=== PATIENT | female | born 1975 | race Hispanic/Latino ===

== ENCOUNTER 2017-03-03 20:51 | Emergency (ER) | payer OTHER ==
--- NOTE | 2017-03-03 21:25 | ED PDOC ---
Arrival/HPI - General Chief Complaint: High Blood Pressure Time Seen by Provider: 03/03/17 21:11 - History of Present Illness Narrative History of Present Illness (Text): 03/03/17 21:23 Patient is a 41 y/o F presenting with hypertension. She reports that she is leaving for a cruise tomorrow and her BP is elevated so she is presenting for " a pill" to take care of her blood pressure. She reports intermittent dizziness and fatigue over the last 4 weeks. 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 She reports chronic cough that has been treated with zpack x 2. Denies chest pain, shortness of breath, weakness, numbness. Reports hx of "prediabetes." 03/03/17 22:16 Past Medical History - Cardiac Hx Cardiac Disorders: No - Pulmonary Hx Asthma: Yes - Neurological Hx Neurological Disorder: No - HEENT Hx HEENT Disorder: No - Renal Hx Renal Disorder: No - Endocrine/Metabolic Hx Endocrine Disorders: No - Hematological/Oncological Hx Blood Disorders: No - Integumentary Hx Dermatological Disorder: No - Musculoskeletal/Rheumatological Hx Musculoskeletal Disorders: No - Gastrointestinal Hx Gastrointestinal Disorders: No - Genitourinary/Gynecological Hx Genitourinary Disorders: No - Psychiatric Hx Psychophysiologic Disorder: No Hx Substance Use: No - Anesthesia Hx Anesthesia: No Family/Social History Smoking Status: Never Smoked Hx Alcohol Use: No Hx Substance Use: No Allergies/Home Meds Allergies/Adverse Reactions: Allergies No Known Allergies Allergy (Verified 03/03/17 20:56) Home Medications: Home Meds Medication Instructions Recorded Confirmed Cholecalciferol [Vitamin D] 2,000 iu PO DAILY 03/03/17 03/03/17 Cyanocobalamin (Vitamin B-12) 5,000 mcg SL DAILY 03/03/17 03/03/17 [Vitamin B-12] Review of Systems - Review of Systems Constitutional: Fatigue. absent: Weight Change, Fevers Respiratory: absent: SOB, Cough, Sputum, Wheezing Cardiovascular: absent: Chest Pain, Palpitations Gastrointestinal: absent: Abdominal Pain, Constipation, Diarrhea, Nausea, Vomiting Genitourinary Female: absent: Dysuria Neurological: Dizziness. absent: Headache, Focal Weakness, Gait Changes, Speech Changes, Facial Droop, Disequilibrium Physical Exam Vital Signs Temp Pulse Resp BP Pulse Ox 03/03/17 22:30 89 18 117/72 99 01/18/18 20:59 98.6 F 90 18 155/99 H 97 03/03/17 20:58 98.6 F 87 19 155/99 H 99 Temperature: Afebrile Blood Pressure: Hypertensive Pulse: Regular Respiratory Rate: Normal Appearance: Positive for: Well-Appearing, Non-Toxic, Comfortable Pain Distress: None Mental Status: Positive for: Alert and Oriented X 3 - Systems Exam Head: Present: Atraumatic, Normocephalic Pupils: Present: PERRL Extroacular Muscles: Present: EOMI Conjunctiva: Present: Normal Neck: Present: Normal Range of Motion, Other (no thyromegaly) Respiratory/Chest: Present: Clear to Auscultation, Good Air Exchange. No: Respiratory Distress Cardiovascular: Present: Regular Rate and Rhythm Abdomen: No: Tenderness, Distention Upper Extremity: Present: Normal Inspection Lower Extremity: Present: Normal Inspection. No: Edema Neurological: Present: GCS=15, CN II-XII Intact, Speech Normal, Gait Normal Medical Decision Making ED Course and Treatment: 03/03/17 21:22 Patient instructed on the importance of diet and exercise with weight loss before treatment of hypertension with medication. She was instructed on importance of following up with PMD for chronic complaints. She was instructed to get thyroid evaluated 03/03/17 21:25 03/03/17 21:53 EKG shows NSR at 72bpm with normal intervals and no ST changes 03/03/17 22:07 Labs grossly normal. Cxray negative. Repeat BP improved spontaneously. Symptoms could be secondary to deconditioning vs viral illness. Instructed to follow-up with PMD for further evaluation and evaluation of thyroid. - Lab Interpretations Lab Results: 03/03/17 21:51 03/03/17 21:51 Lab Results 03/03/17 21:51: Sodium 133, Potassium 3.8, Chloride 98, Carbon Dioxide 27, Anion Gap 12, BUN 10, Creatinine 0.5 L, Est GFR ( Amer) > 60, Est GFR ( Non-Af Amer) > 60, Random Glucose 138 H, Calcium 9.2, Total Bilirubin 0.4, AST 20, ALT 24, Alkaline Phosphatase 70, Total Protein 6.9, Albumin 3.7, Globulin 3.2, Albumin/Globulin Ratio 1.2 03/03/17 21:51: WBC 9.0, RBC 4.41, Hgb 12.7, Hct 38.1, MCV 86.4, MCH 28.8, MCHC 33.3, RDW 13.8, Plt Count 274, MPV 9.3, Gran % 60.9, Lymph % (Auto) 28.8, [place] % (Auto) 6.9 H, Eos % (Auto) 2.8, Baso % (Auto) 0.6, Gran # 5.49, Lymph # 2.6, [place] # 0.6, Eos # 0.3, Baso # 0.05 - RAD Interpretation Radiology Orders: 03/03/17 22:18 CHEST PORTABLE [RAD] Stat Disposition/Present on Arrival - Present on Arrival Any Indicators Present on Arrival: No History of DVT/PE: No History of Uncontrolled Diabetes: No Urinary Catheter: No History of Decub. Ulcer: No History Surgical Site Infection Following: None - Disposition Have Diagnosis and Disposition been Completed?: Yes Diagnosis: Elevated blood pressure reading Disposition: HOME/ ROUTINE Disposition Time: 22:08 Patient Plan: Discharge Patient Problems: Current Active Problems Problem Status Onset Elevated blood pressure reading Acute Condition: GOOD Discharge Instructions (ExitCare): Hypertension (ED) Additional Instructions: Follow-up with PMD within 2 days. Return to ED if condition worsens. Follow- up with PMD for elevation of thyroid. Referrals: PCP,NO [Primary Care Provider] - Follow up with primary Forms: [employer] (German)
[2017-03-03 21:57] LABS: BASO # 0.05 K/mm3 (0.0-2.0); BASO % 0.6 % (0.0-3.0); EOS # 0.3 (0.0-0.7); EOS % 2.8 % (1.5-5.0); GRAN # 5.49 (1.4-6.5); GRAN % 60.9 % (50.0-68.0); HEMOGLOBIN 12.7 g/dL (12.0-16.0); LYMPH # 2.6 (1.2-3.4); LYMPH % 28.8 % (22.0-35.0); MEAN CELL VOLUME 86.4 fl (80.0-105.0); MEAN CORPUSCULAR HEMOGLOBIN 28.8 pg (25.0-35.0); MEAN CORPUSCULAR HGB CONC 33.3 g/dl (31.0-37.0); MEAN PLATELET VOLUME 9.3 fl (7.0-11.0); MONO # 0.6 (0.1-0.6); MONO % 6.9 % (1.0-6.0); RBC 4.41 10^6/uL (3.5-6.1); RED CELL DISTRIBUTION WIDTH 13.8 % (11.5-14.5)
[2017-03-03 22:06] LABS: ALB/GLOB RATIO 1.2 (1.1-1.8); ALBUMIN 3.7 g/dL (3.0-4.8); ALT/SGPT 24 U/L (7-56); AST/SGOT 20 U/L (14-36); BLOOD UREA NITROGEN 10 mg/dL (7-21); CALCIUM 9.2 mg/dL (8.4-10.5); GFR AFRICAN-AMERICAN > 60; GFR NON-AFRICAN AMERICAN > 60
[2017-03-03 22:55] VITALS: BP 117/72; PULSE 89; RESP 18; TEMP 98.6; O2SAT 99; BMI 38.3
--- NOTE | 2017-03-04 08:33 | RAD ---
HISTORY: cough COMPARISON: No prior. FINDINGS: LUNGS: The lungs are clear. PLEURA: No significant pleural effusion identified, no pneumothorax apparent. CARDIOVASCULAR: Normal. OSSEOUS STRUCTURES: No significant abnormalities. VISUALIZED UPPER ABDOMEN: Normal. OTHER FINDINGS: None. IMPRESSION: No active pulmonary disease.
--- NOTE | 2017-03-04 10:16 | CARD ---
APPROVED REPORT EKG Measurement Heart [id number] CT [id number] [id number] <Conclusion> Normal sinus rhythm Normal ECG
== END 2017-03-03 22:31 | disposition home or self-care (01) ==
LOC: ED 20:51
DX: I10 Essential (primary) hypertension (principal); R03.0 Elevated blood-pressure reading, without diagnosis of hypertension